=== PATIENT | female | born 1945 | race Caucasian/White ===

== ENCOUNTER 2021-08-10 10:45 | Emergency (ER) | payer MEDICARE, OTHER ==
[~2021-08-10] VITALS: Ht 160 cm; Wt 75.7 kg
--- NOTE | 2021-08-10 10:45 | NUR ---
PT BIBRA 41 FROM HOME C/O DIZZINESS AND WEAKNESS STARTED TODAY. PT IS AAOX4 [place] SPEAKING ONLY, NOT IN RESPIRATORY DISTRESS, HOOKED TO V/S MONITOR, KEPT RESTED AND COMFORTABLE. WILL CONTINUE TO MONITOR.
--- NOTE | 2021-08-10 10:48 | NUR ---
AT BEDSIDE FOR EVAL.
--- NOTE | 2021-08-10 11:00 | NUR ---
URINE SPECIMEN COLLECTED AND SENT TO LAB.
--- NOTE | 2021-08-10 11:05 | NUR ---
IV LINE ESTABLISHED BLOOD DRAWN AND SENT TO LAB.
--- NOTE | 2021-08-10 11:11 | NUR ---
COVID SPECIMEN COLLECTED AND SENT TO LAB.
[2021-08-10 11:22] LABS: BASOPHILS % (AUTO) 0.4 % (0.0-2.0); EOSINOPHILS % (AUTO) 3.8 % (0.0-6.0); HEMATOCRIT 44 % (33-45); HEMOGLOBIN 14.6 g/dL (11.5-14.8); LYMPHOCYTES # (AUTO) 2.1 K/uL (0.8-4.8); LYMPHOCYTES % (AUTO) 18.4 % (20.0-44.0); MEAN CORPUSCULAR HGB CONC 33 g/dl (31.0-36.0); MEAN CORPUSCULAR VOLUME 88 fL (82-100); MONOCYTES # (AUTO) 1.1 K/uL (0.1-1.30); MONOCYTES % (AUTO) 9.4 % (2.0-12.0); NEUTROPHILS # (AUTO) 7.7 K/uL (1.8-8.9); PLATELET COUNT (AUTO) 288 K/uL (150-450); RED BLOOD CELL COUNT(AUTO) 5.03 MIL/uL (4.0-5.2); WHITE BLOOD COUNT (AUTO) 11.4 K/uL (4.3-11.0)
[2021-08-10] MEDS ORDERED: ALEN70TA80 PO (11:33)
[2021-08-10] MEDS ORDERED: ERGO500040 PO (11:33)
[2021-08-10] MEDS ORDERED: MEMA5TAB PO (11:33)
[2021-08-10] MEDS ORDERED: ATOR10TA PO (11:33)
[2021-08-10] MEDS ORDERED: LISI40TA13 PO (11:33)
[2021-08-10] MEDS ORDERED: SERT25TA PO (11:33)
[2021-08-10] MEDS ORDERED: IBUP-1955 PO (11:33)
[2021-08-10] MEDS ORDERED: ICOS1CAP PO (11:33)
[2021-08-10] MEDS ORDERED: MECL-159 PO (11:33)
[2021-08-10] MEDS ORDERED: CARV12.52 PO (11:33)
[2021-08-10] MEDS ORDERED: ACET-2605 PO (11:33)
[2021-08-10] MEDS ORDERED: HYDR25TA4 PO (11:33)
[2021-08-10] MEDS ORDERED: CLON0.1T PO (11:33)
[2021-08-10] MEDS ORDERED: EZET10TA16 PO (11:33)
[2021-08-10] MEDS ORDERED: DONE5TAB34 PO (11:33)
[2021-08-10] MEDS ORDERED: NIFE30TA91 PO (11:33)
[2021-08-10 12:31] LABS: ALANINE AMINOTRANSFERASE 22 U/L (12-78); ALBUMIN 3.7 g/dL (3.4-5.0); ALKALINE PHOSPHATASE 80 U/L (46-116); ASPARTATE AMINOTRANSFERASE 19 U/L (15-37); BILIRUBIN,DIRECT 0.1 mg/dL (0.0-0.2); BILIRUBIN,TOTAL 0.4 mg/dL (0.2-1.0); CALCIUM, SERUM 9.5 mg/dL (8.5-10.1); CARBON DIOXIDE 25 mmol/L (21-32); CHLORIDE 102 mmol/L (98-107); CREATININE 0.8 mg/dL (0.6-1.3); GLUCOSE 117 mg/dL (74-106); POTASSIUM 4.1 mmol/L (3.5-5.1); SODIUM SERUM 137 mmol/L (136-145); TOTAL PROTEIN, SERUM 7.5 g/dL (6.4-8.2); UREA NITROGEN, BLOOD 29 mg/dL (7-18)
[2021-08-10 12:46] LABS: BILIRUBIN,URINE NEGATIVE (NEGATIVE); COLOR,URINE YELLOW (YELLOW); LEUKOCYTE ESTERASE ,URINE MODERATE (NEGATIVE); NITRITE, URINE NEGATIVE (NEGATIVE); PROTEIN,URINE NEGATIVE (NEGATIVE); UGLUCOSE NEGATIVE (NEGATIVE); UROBILINOGEN,URINE 0.2 EU/dL (0.2)
[2021-08-10 13:11] LABS: BACTERIA,URINE Few /HPF (None Seen); RBC,URINE 0-2 /HPF (0-2); SQUAMOUS EPITHELIAL CELL,UR Moderate /HPF (None Seen); WBC,URINE 21-50 /HPF (0-3)
[2021-08-10 13:41] VITALS: BP 125/71
--- NOTE | 2021-08-10 13:41 | NUR ---
IV removed. Catheter intact and site benign. Pressure and 4x4 applied to site. No bleeding noted. Patient discharged to home in stable condition. Written and verbal after care instructions given. Patient verbalizes understanding of instruction.
== END 2021-08-10 13:42 | disposition home or self-care (01) ==
LOC: ER 10:47
DX: R53.1 Weakness (principal); I10 Essential (primary) hypertension; R42 Dizziness and giddiness; Z20.822 Contact with and (suspected) exposure to COVID-19
CPT/HCPCS: 36415; 71045-TC; 80048-TC; 80076-TC; 81001; 83605-TC; 84484-TC; 85025-TC; 85730-TC; 87040-TC; 87086-TC; C9803